=== PATIENT | female | born 1975 | race Caucasian/White ===

== ENCOUNTER 2022-04-29 17:29 | Emergency (ER) | payer OTHER ==
[2022-04-29] MEDS ORDERED: CEPHALEXIN500 M1 PO (22:13)
[2022-04-29] MEDS ORDERED: BACTRIM DS TAB1 EACH PO (22:13)
[2022-04-29] MEDS ORDERED: BACTROBAN OINT22 GM TOP (22:13)
[2022-04-29] MEDS ORDERED: ONDANSETRON ODT4 MG SL (22:13)
== END 2022-04-29 22:30 | disposition home or self-care (01) ==
LOC: ER1 17:29
DX: S90.561A Insect bite (nonvenomous), right ankle, initial encounter (principal); L03.115 Cellulitis of right lower limb; K21.9 Gastro-esophageal reflux disease without esophagitis; I10 Essential (primary) hypertension; E03.9 Hypothyroidism, unspecified; Z90.49 Acquired absence of other specified parts of digestive tract; W57.XXXA Bitten or stung by nonvenomous insect and other nonvenomous arthropods, initial encounter
CPT/HCPCS: 10060; 81001; 87070; 87086; 87205; 99283